=== PATIENT | male | born 1965 | race Caucasian/White ===

== ENCOUNTER 2016-10-12 12:43 | Emergency (ER) | payer MEDICAID ==
[2016-10-12] MEDS ORDERED: TRIAMCINOLONE 40 MG/ML VIAL ONE (14:40)
[2016-10-12] MEDS ORDERED: LIDOCAINE 1% 2 ML VIAL ONE (14:40)
--- NOTE | 2016-10-12 15:02 | ED Physician Documentation ---
PD HPI UPPER EXT INJURY - Stated complaint Stated Complaint: L ELBOW SWELLING - Chief complaint Chief Complaint: Ext Problem - History obtained from History obtained from: Patient - History of Present Illness Location: Left, Elbow Type of injury: Blunt / blow Where injury occurred: Home Timing - onset: How many weeks ago (3) Timing - duration: Weeks (3) Improved by: Rest, Immobilization Worsened by: Moving, Palpating Associated symptoms: Swelling. No: Weakness, Numbness Contributing factors: No: Anticoagulated Similar symptoms before: Has not had sx before Recently seen: Not recently seen - Additonal information Additional information: 51-year-old male banged his elbow very hard about 3 and half weeks ago he had some swelling that developed several days later and he has drained this area with a sharp razor blade and the fluid has reaccumulated and he attempted to re- drain this last night. This morning he continues to have fluid in the area and is come in for evaluation. He has some sensation of a flopping mass on his elbow but he does not have pain associated with this and he has not developed a fever or erythema. He states that when he banged his elbow he did not have any piercing of the skin. Review of Systems Constitutional: denies: Fever Eyes: denies: Decreased vision Ears: denies: Ear pain Nose: denies: Congestion Respiratory: denies: Cough GI: denies: Vomiting Musculoskeletal: reports: Extremity pain, Joint swelling. denies: Neck pain, Back pain, Joint pain Neurologic: denies: Generalized weakness, Focal weakness, Numbness PD PAST MEDICAL HISTORY - Past Medical History Past Medical History: Yes Cardiovascular: Hypertension Respiratory: Other Endocrine/Autoimmune: None GI: None : None HEENT: Other Psych:  Musculoskeletal: Osteoarthritis, Other Derm: None - Past Surgical History Past Surgical History: Yes Ortho: Carpal Tunnel surgery, Other - Present Medications Home Medications: Ambulatory Orders Medication Instructions Recorded Confirmed No Known Home Medications [No 10/12/16 10/12/16 Known Home Medications] - Allergies Allergies/Adverse Reactions: Allergies Allergy/AdvReac Type Severity Reaction Status Date / Time No Known Drug Allergies Allergy Verified 10/12/16 12:49 - Social History Does the pt smoke?: Yes Smoking Status: Current every day smoker Does the pt drink ETOH?: Yes Does the pt have substance abuse?: No - Immunizations Immunizations are current?: No Immunizations: TDAP >10years/unknown - POLST Patient has POLST: No PD ED PE NORMAL - Vitals Vital signs reviewed: Yes (hypertensive ) - General General: Alert and oriented X 3, No acute distress, Well developed/nourished - HEENT HEENT: Atraumatic, PERRL - Respiratory Respiratory: No respiratory distress - Derm Derm: Normal color, Warm and dry, No rash - Extremities Extremities: No deformity, Other (There is a fluctuant mass to the left elbow that is non-tender and without overlying erythema. There are 2 healing laceration easley to the skin without signs of inflammation. The distal n/v is intact, and the ROM is not restricted. ) - Neuro Neuro: Alert and oriented X 3, No motor deficit, No sensory deficit, Normal speech - Psych Psych: Normal mood, Normal affect Results - Vitals Vitals: Vital Signs - 24 hr 10/12/16 10/12/16 12:47 15:17 Temperature 36.5 C 36.2 C L Heart Rate 90 68 Respiratory 18 18 Rate Blood Pressure 195/107 H 168/105 H O2 Saturation 99 98 Oxygen O2 Source Room air - Labs Labs: Microbiology 10/12/16 15:00 Body Fluid Culture - Preliminary Synovial Fluid Procedures - Arthrocentesis Joint: Elbow Preparation: Sterile prep and drape Anesthesia: Lidocaine 1% Fluid: Bloody, Clear, Sent for culture, Fluid obtained - cc (25) Aftercare: Dressing applied, No complications, Other (instilled kenalog 40mg) PD MEDICAL DECISION MAKING - ED course Complexity details: re-evaluated patient, considered differential, d/w patient ED course: 51-year-old male with an olecranon bursitis that is swollen up again after he drained this at home. He is not having signs or symptoms of infection. The olecranon bursa is drained and 40 mg of Kenalog is instilled. Departure - Departure Disposition: 01 Home, Self Care Clinical Impression: Olecranon bursitis of left elbow Condition: Stable Instructions: ED Bursitis Elbow Olecranon Follow-Up: [facility] [Provider Group] Comments: Today in the Emergency Department your blood pressure was elevated. This can happen from the stress of the visit itself, from a current illness or circumstance or from uncontrolled hypertension. If you take blood pressure medications take your usual mediations, have your blood pressure re-checked in an appropriate setting and follow up any elevation with your primary care doctor. Discharge Date/Time: 10/12/16 15:18
[2016-10-12 15:18] VITALS: BP 168/105
== END 2016-10-12 15:18 | disposition home or self-care (01) ==
LOC: ED 12:43
DX: M70.22 Olecranon bursitis, left elbow (principal); W22.8XXA Striking against or struck by other objects, initial encounter; Y92.018 Other place in single-family (private) house as the place of occurrence of the external cause; I10 Essential (primary) hypertension; M19.90 Unspecified osteoarthritis, unspecified site; F17.200 Nicotine dependence, unspecified, uncomplicated
CPT/HCPCS: 12001; 20605; 87070; 87205; 99283

== ENCOUNTER 2016-12-18 11:05 | Outpatient (CLI) | payer MEDICAID ==
[2016-12-18 19:03] LABS: BASOPHILS # (AUTO) 0.1 10^3/uL (0.0-0.1); BASOPHILS % (AUTO) 1.5 %; EOSINOPHILS # (AUTO) 0.2 10^3/uL (0.0-0.7); EOSINOPHILS % (AUTO) 3.8 %; HCT - HEMATOCRIT 45.5 % (42.0-52.0); HGB - HEMOGLOBIN 14.8 g/dL (14.0-18.0); LYMPHOCYTES # (AUTO) 2.8 10^3/uL (1.5-3.5); LYMPHOCYTES % (AUTO) 46.7 %; MEAN CORPUSCULAR HEMOGLOBIN 31.9 pg (27.0-31.0); MEAN CORPUSCULAR HGB CONC 32.6 g/dL (32.0-36.0); MEAN CORPUSCULAR VOLUME 98.1 fL (80.0-94.0); MONOCYTES # (AUTO) 0.5 10^3/uL (0.0-1.0); MONOCYTES % (AUTO) 8.7 %; NEUTROPHILS # (AUTO) 2.4 10^3/uL (1.5-6.6); NEUTROPHILS % (AUTO) 39.3 %; NUCLEATED RED BLOOD CELLS AUTO 0.1 /100WBC; RED BLOOD COUNT 4.64 10^6/uL (4.70-6.10); RED CELL DISTRIBUTION WIDTH 14.5 % (12.0-15.0); UNCORRECTED WHITE BLOOD COUNT 6.1 x10^3/uL; WHITE BLOOD COUNT 6.1 x10^3/uL (4.8-10.8)
[2016-12-18 19:39] LABS: ALBUMIN/GLOBULIN RATIO 1.5 (1.0-2.2); BUN - BLOOD UREA NITROGEN 10 mg/dL (6-20); CALCIUM 10.8 mg/dL (8.5-10.3); CARBON DIOXIDE - CO2 25 mmol/L (21-32); CHLORIDE 103 mmol/L (101-111); CHOL/HDL RATIO 3.3 (<5.0); CHOLESTEROL 171 mg/dL; CREATININE 0.7 mg/dL (0.6-1.2); GFR - MDRD 118 (>89); GLUCOSE 128 mg/dL (70-100); HDL CHOLESTEROL 52 mg/dL; LDL/HDL RATIO 1.6 (<3.6); POTASSIUM 3.8 mmol/L (3.5-5.0); SODIUM 136 mmol/L (135-145); TOTAL PROTEIN 7.8 g/dL (6.7-8.2); TRIGLYCERIDES 182 mg/dL; VLDL CHOLESTEROL 36 mg/dL
== END 2016-12-18 11:06 | disposition home or self-care (01) ==
LOC: LAB.N 11:05
PROVIDERS: ATTEND Family Medicine
DX: F17.210 Nicotine dependence, cigarettes, uncomplicated (principal); I10 Essential (primary) hypertension
CPT/HCPCS: 36415; 80053; 80061; 85025

== ENCOUNTER 2017-09-13 11:13 | Outpatient (CLI) | payer OTHER ==
--- NOTE | 2017-09-13 16:40 | XRAY Report ---
Procedure Date: 09/13/2017 Accession Number: [id number] / [id number] Procedure: XR - Knee 3 View RT CPT Code: FULL RESULT: EXAM: Knee 3 View RT DATE: 09/13/2017 11:40 AM CLINICAL HISTORY: KNEE PAIN/LUMBAR PAIN COMPARISON: 09/19/2012 TECHNIQUE: 3 views. FINDINGS: Progressive medial knee joint space narrowing, sclerosis and spurring. Minimal patellar articular surface spurring. Small suprapatellar effusion no fracture or malalignment IMPRESSION: Progressive degenerative change right knee since 2012 particularly affecting the medial knee joint RADIA
--- NOTE | 2017-09-13 16:43 | XRAY Report ---
Procedure Date: 09/13/2017 Accession Number: [id number] / [id number] Procedure: XR - Lumbar Spine 2 View CPT Code: FULL RESULT: EXAM: Lumbar Spine 2 View DATE: 09/13/2017 11:40 AM CLINICAL HISTORY: KNEE PAIN/LUMBAR PAIN COMPARISON: MRI lumbar spine 06/07/2009 TECHNIQUE: 2 views. FINDINGS: Alignment: No scoliosis. Minimal retrolisthesis of L5 with respect to S1. Bones: No vertebral body fractures or bone lesions. Status post ORIF right hip Disks: L5-S1 degenerative disc space narrowing, vacuum phenomenon, and spurring. Mild L4-5 disc space narrowing. Remaining disc spaces well maintained. Facets: Degenerative changes most marked L4-5 and L5-S1. Sacroiliac Joints: Mild degenerative changes. Soft Tissues: Unremarkable. IMPRESSION: Degenerative change lumbar spine most marked L5-S1. Probable mild progression since the 06/07/2009 MRI. RADIA
== END 2017-09-13 11:14 | disposition home or self-care (01) ==
LOC: DI 11:13
DX: M51.37 Other intervertebral disc degeneration, lumbosacral region (principal); M51.36 Other intervertebral disc degeneration, lumbar region; M47.897 Other spondylosis, lumbosacral region; M47.896 Other spondylosis, lumbar region
CPT/HCPCS: 72100

== ENCOUNTER 2018-04-18 12:21 | Emergency (ER) | payer MEDICAID, OTHER ==
--- NOTE | 2018-04-18 13:13 | ED Physician Documentation ---
PD HPI ABD PAIN - Stated complaint Stated Complaint: ABD PX - Chief complaint Chief Complaint: Abd Pain - History obtained from History obtained from: Patient - History of Present Illness Timing - onset: How many weeks ago (1) Timing - duration: Weeks (1) Timing - details: Gradual onset, Still present, Waxing and waning Quality: Cramping, Aching Location: RUQ, Epigastric Review of Systems Constitutional: denies: Fever, Chills Nose: reports: Rhinorrhea / runny nose (1-2 weeks ago, improved), Congestion Cardiac: denies: Chest pain / pressure, Pedal edema Respiratory: reports: Cough GI: denies: Nausea, Vomiting, Constipation (but firm stool. Abd feels better with BMs. He also has a lot of belching and feels better with burping.), Diarrhea : denies: Dysuria, Frequency Skin: denies: Rash, Lesions Neurologic: denies: Generalized weakness, Near syncope PD PAST MEDICAL HISTORY - Past Medical History Cardiovascular: Hypertension Respiratory: Other Endocrine/Autoimmune: None GI: None : None HEENT: Other Psych:  Musculoskeletal: Osteoarthritis, Other Derm: None - Past Surgical History Past Surgical History: Yes Ortho: Carpal Tunnel surgery, Other - Present Medications Home Medications: Ambulatory Orders Medication Instructions Recorded Confirmed Docusate Sodium 100 mg PO DAILY #20 capsule 04/18/18 Naproxen 375 mg PO BID #20 tablet 04/18/18 Spironolactone 25 mg PO DAILY #10 tablet 04/18/18 - Allergies Allergies/Adverse Reactions: Allergies Allergy/AdvReac Type Severity Reaction Status Date / Time No Known Drug Allergies Allergy Verified 04/18/18 12:40 - Living Situation Living Arrangement: reports: At home - Social History Does the pt smoke?: Yes Smoking Status: Current every day smoker Does the pt drink ETOH?: Yes Does the pt have substance abuse?: No - Immunizations Immunizations are current?: No Immunizations: TDAP >10years/unknown - POLST Patient has POLST: No PD ED PE NORMAL - Vitals Vital signs reviewed: Yes - General General: Alert and oriented X 3, Well developed/nourished - HEENT HEENT: Ears normal, Pharynx benign - Neck Neck: Supple, no meningeal sign, No adenopathy, No JVD - Cardiac Cardiac: RRR, No murmur - Respiratory Respiratory: Clear bilaterally, Other (no crackles heard) - Abdomen Abdomen: Soft, No organomegaly, Other (moderately distended. Not tense. Mild diffuse tenderness/pressure with palpation. No focal tenderness and not tender over [place] area. ). No: Normal bowel sounds (increased diffusely) - Male Male : Deferred - Rectal Rectal: Deferred - Back Back: No CVA TTP - Derm Derm: Normal color, Warm and dry - Extremities Extremities: No tenderness to palpate, Normal ROM s pain, No edema, No calf tenderness / cord - Neuro Neuro: Alert and oriented X 3, No motor deficit, Normal speech Results - Vitals Vitals: Vital Signs - 24 hr 04/18/18 04/18/18 04/18/18 12:38 14:48 16:55 Temperature 35.8 C L 36.5 C 37.1 C Heart Rate 56 L 59 L 107 H Respiratory 14 20 20 Rate Blood Pressure 128/102 H 126/100 H 120/98 H O2 Saturation 96 96 96 Oxygen O2 Source Room air - Labs Labs: Laboratory Tests 04/18/18 04/18/18 04/18/18 13:28 13:28 14:55 WBC 7.6 RBC 4.33 L Hgb 14.7 Hct 43.0 MCV 99.5 H MCH 34.0 H MCHC 34.1 RDW 13.8 Plt Count 267 MPV 8.5 Neut # (Auto) 4.8 Lymph # (Auto) 2.0 [place] # (Auto) 0.7 Eos # (Auto) 0.0 Baso # (Auto) 0.1 Absolute Nucleated RBC 0.01 Nucleated RBC % 0.1 Sodium 140 Potassium 3.8 Chloride 104 Carbon Dioxide 24 Anion Gap 12.0 BUN 13 Creatinine 0.9 Estimated GFR (MDRD) 88 L Glucose 103 H Calcium 10.2 Total Bilirubin 1.8 H AST 44 H ALT 39 Alkaline Phosphatase 143 H Total Protein 7.5 Albumin 4.0 Globulin 3.5 Albumin/Globulin Ratio 1.1 Lipase 29 Urine Color ORANGE Urine Clarity CLEAR Urine pH 7.0 Ur Specific [place] 1.010 Urine Protein Urine Glucose (UA) NEGATIVE Urine Ketones NEGATIVE Urine Occult Blood NEGATIVE Urine Nitrite NEGATIVE Urine Bilirubin NEGATIVE Urine Urobilinogen Ur Leukocyte Esterase NEGATIVE Urine RBC 0-5 Urine WBC 0-3 Ur Squamous Epith Cells NONE SEEN Urine Bacteria None Seen Ur Microscopic Review INDICATED Urine Culture Comments NOT INDICATED PD MEDICAL DECISION MAKING - ED course Complexity details: considered differential (He does not seem to be in CHF/failure. Liver does not look bad on CT and his LFTs are minimally elevated, so cirrhotic ascites seems strange. He had URI/viral illness 1-2 weeks ago, so consider some viral related process? He does not have fever nor leukocytosis, nor significant abd pain/tender, just fullness/cramps, so doubt SBP and not much ascites there for trying to tap anyway. Does have fairly regular alcohol use. Can start diuretic and stool softener. to f/u PCP and will likely need GI referral. ), d/w wireless consultant (Baldo Wright, risk control manager for surgery, and reviewed findings. He did not think the ascites nor effusion would originate from the gallstones, even if some mild cholecystitis. More likely the GB wall thickening is from edema/ascites. Thinks GI/medicine eval more appropriate. ) Departure - Departure Disposition: 01 Home, Self Care Clinical Impression: Abdominal bloating with cramps, Gallstones Ascites Qualifiers: Ascites type: other type Qualified Code(s): R18.8 - Other ascites Condition: Stable Record reviewed to determine appropriate education?: Yes Instructions: ED Abdominal Pain Unkn Cause, ED Ascites Prescriptions: Docusate Sodium 100 mg PO DAILY #20 capsule Naproxen 375 mg PO BID #20 tablet Spironolactone 25 mg PO DAILY #10 tablet Comments: You do have a little bit of fluid in the abdominal cavity called ascites. There is no direct obvious reason for it at this time. He could potentially be post viral irritation of the intestine that goes along with your gas and burping. You do have some gallstones but that looks to be incidental. You can get liver dysfunction from regular alcohol use and that could be causing the buildup of fluid in the abdomen as well. Your liver function looks pretty normal though. Decrease alcohol use. We will have you use a stool softener along with some anti-inflammatories and a mild diuretic over the next week. Call your primary care for follow-up appointment for next week and see how much better you are improved. Return if worsening or you have vomiting or fever or specifically right upper abdominal pain. Discharge Date/Time: 04/18/18 17:01
[2018-04-18 13:37] LABS: BASOPHILS # (AUTO) 0.1 10^3/uL (0.0-0.1); BASOPHILS % (AUTO) 0.9 %; EOSINOPHILS % (AUTO) 0.4 %; HGB - HEMOGLOBIN 14.7 g/dL (14.0-18.0); LYMPHOCYTES % (AUTO) 26.3 %; MEAN CORPUSCULAR HGB CONC 34.1 g/dL (32.0-36.0); MEAN CORPUSCULAR VOLUME 99.5 fL (80.0-94.0); MEAN PLATELET VOLUME 8.5 fL (7.4-11.4); MONOCYTES # (AUTO) 0.7 10^3/uL (0.0-1.0); MONOCYTES % (AUTO) 9.6 %; NEUTROPHILS # (AUTO) 4.8 10^3/uL (1.5-6.6); NEUTROPHILS % (AUTO) 62.8 %; PLT - PLATELET COUNT 267 10^3/uL (130-450); RED BLOOD COUNT 4.33 10^6/uL (4.70-6.10); RED CELL DISTRIBUTION WIDTH 13.8 % (12.0-15.0); WHITE BLOOD COUNT 7.6 x10^3/uL (4.8-10.8)
[2018-04-18] MEDS ORDERED: SODIUM CHLORIDE 0.9% 1,000 ML IV ONE (13:47)
[2018-04-18] MEDS ORDERED: IOVERSOL 320 100 ML VIAL IVP ONE ×2 (14:10→14:34)
[2018-04-18 14:35] LABS: ALBUMIN/GLOBULIN RATIO 1.1 (1.0-2.2); BILIRUBIN,TOTAL 1.8 mg/dL (0.2-1.0); CALCIUM 10.2 mg/dL (8.5-10.3); CREATININE 0.9 mg/dL (0.6-1.2); TOTAL PROTEIN 7.5 g/dL (6.7-8.2)
--- NOTE | 2018-04-18 15:02 | CT Report ---
Reason: abd pain diffusely and bloating Procedure Date: 04/18/2018 Accession Number: [id number] / [id number] Procedure: CT - Abdomen/Pelvis W/ CPT Code: FULL RESULT: EXAM: CT ABDOMEN AND PELVIS EXAM DATE: 04/18/2018 02:33 PM. CLINICAL HISTORY: Abdominal pain diffusely and bloating. COMPARISONS: None. TECHNIQUE: Routine helical CT imaging was performed through the abdomen and pelvis. IV contrast: Optiray 320, 90 mL. Enteric contrast: No. Reconstructions: Coronal and sagittal. In accordance with CT protocol optimization, one or more of the following dose reduction techniques were utilized for this exam: automated exposure control, adjustment of mA and/or KV based on patient size, or use of iterative reconstructive technique. FINDINGS: Lung Bases: Small to moderate right pleural effusion with associated consolidation. Liver: Low density, likely steatosis. Gallbladder/Bile Ducts: Cholelithiasis. The gallbladder wall is thickened to 6 mm and appears hypodense/edematous with slight surrounding stranding, some of which is remaining in the abdominal mesentery. Spleen: Normal. Pancreas: Normal. Adrenal Glands: Normal. Kidneys: Normal. No masses or hydronephrosis. Peritoneal Cavity/Bowel: Predominantly perihepatic and right pericolic gutter ascites. No free air or adenopathy. No masses or acute inflammatory process. Pelvic Organs: Pelvic ascites and sigmoid diverticulosis without definite diverticulitis. The bladder and visualized pelvic organs are within normal limits. Vasculature: No aneurysms or other significant abnormality. Bones: No significant abnormality. Other: None. IMPRESSION: Right pleural effusion with ascites in the setting of low density liver, correlate to hepatitis. Cholelithiasis. Due to the ascites, cholecystitis cannot be excluded by CT. CRITICAL RESULT: The findings were discussed with Dr. Oviedo on 04/18/2018 at 3 PM. RADIA
[2018-04-18 15:09] LABS: GLUCOSE, URINE (UA) NEGATIVE (NEGATIVE); KETONES,URINE (UA) NEGATIVE (NEGATIVE); LEUKOCYTE ESTERASE, URINE NEGATIVE (NEGATIVE); NITRITE,URINE NEGATIVE (NEGATIVE); OCCULT BLOOD,URINE NEGATIVE (NEGATIVE)
[2018-04-18 15:16] LABS: BILIRUBIN,URINE NEGATIVE (NEGATIVE); CLARITY,URINE CLEAR (CLEAR); ICTOTEST,URINE NEGATIVE
[2018-04-18 15:17] LABS: BACTERIA,URINE None Seen /HPF (None Seen); RBC,URINE 0-5 /HPF (0-5); SQUAMOUS EPITHELIAL CELL,UR NONE SEEN (<= Few)
[2018-04-18] MEDS ORDERED: KETOROLAC 30 MG/ML VIAL IVP STA (15:49)
[2018-04-18] MEDS ORDERED: DOCUSATE SODIUM 100 MG CAPSULE PO STA (15:51)
[2018-04-18 16:55] VITALS: BP 120/98
== END 2018-04-18 17:01 | disposition home or self-care (01) ==
LOC: ED 12:21
DX: R14.0 Abdominal distension (gaseous) (principal); K80.80 Other cholelithiasis without obstruction; R18.8 Other ascites; I10 Essential (primary) hypertension; F17.200 Nicotine dependence, unspecified, uncomplicated
CPT/HCPCS: 36415; 74177; 80053; 81001; 83690; 85025; 96361; 96374; 99283; A9270; Q9967; 81003; 87086

== ENCOUNTER 2018-04-29 09:09 | Inpatient (IN) | payer MEDICAID ==
[2018-04-29 09:52] LABS: BASOPHILS # (AUTO) 0.1 10^3/uL (0.0-0.1); BASOPHILS % (AUTO) 1.1 %; EOSINOPHILS # (AUTO) 0.1 10^3/uL (0.0-0.7); EOSINOPHILS % (AUTO) 1.4 %; HGB - HEMOGLOBIN 14.6 g/dL (14.0-18.0); LYMPHOCYTES # (AUTO) 2.2 10^3/uL (1.5-3.5); LYMPHOCYTES % (AUTO) 34.7 %; MEAN CORPUSCULAR HEMOGLOBIN 33.6 pg (27.0-31.0); MEAN CORPUSCULAR HGB CONC 33.9 g/dL (32.0-36.0); MEAN CORPUSCULAR VOLUME 99.2 fL (80.0-94.0); MEAN PLATELET VOLUME 8.9 fL (7.4-11.4); MONOCYTES # (AUTO) 0.6 10^3/uL (0.0-1.0); MONOCYTES % (AUTO) 9.5 %; NEUTROPHILS # (AUTO) 3.3 10^3/uL (1.5-6.6); NEUTROPHILS % (AUTO) 53.3 %; PLT - PLATELET COUNT 264 10^3/uL (130-450); RED BLOOD COUNT 4.36 10^6/uL (4.70-6.10); RED CELL DISTRIBUTION WIDTH 14.5 % (12.0-15.0); WHITE BLOOD COUNT 6.3 x10^3/uL (4.8-10.8)
[2018-04-29 10:02] LABS: ALBUMIN/GLOBULIN RATIO 1.2 (1.0-2.2); BILIRUBIN,TOTAL 1.8 mg/dL (0.2-1.0); CALCIUM 9.8 mg/dL (8.5-10.3); CREATININE 0.9 mg/dL (0.6-1.2); TOTAL PROTEIN 7.4 g/dL (6.7-8.2)
[2018-04-29 10:06] LABS: RBC MORPHOLOGY (MULTIPLE) 1+ ANISOCYTOSIS (NORMAL)
[2018-04-29] MEDS ORDERED: FUROSEMIDE 40 MG/4 ML VIAL IVP STA (10:30)
--- NOTE | 2018-04-29 10:33 | ED Physician Documentation ---
History of Present Illness - Stated complaint Stated Complaint: ABD PX - Chief complaint Chief Complaint: Abd Pain - History obtained from History obtained from: Patient - History of Present Illness Timing: How many weeks ago (2) - Additonal information Additional information: Previously well 53-year-old male was seen in the emergency department 10 days ago with abdominal pain and abdominal swelling he was noted to have some ascites and was placed on some diuretic. Since that time he has had persistence of abdominal distention some constipation and a feeling of fullness and shortness of breath. He states that he is not able to lay flat without being short of breath and it if he exerts himself at all he becomes acutely short of breath. He does state that he is previously had hypertension he was treated for some time and discontinued treatment about 1 year ago when his blood pressure was normal after he ran out of his medication. Review of Systems Constitutional: denies: Fever Eyes: denies: Decreased vision Ears: denies: Ear pain Nose: denies: Rhinorrhea / runny nose, Congestion Throat: denies: Sore throat Cardiac: denies: Chest pain / pressure, Palpitations Respiratory: reports: Dyspnea. denies: Cough, Wheezing GI: reports: Abdominal Pain, Abdominal Swelling, Constipation : denies: Dysuria, Frequency Skin: denies: Rash Musculoskeletal: reports: Extremity swelling. denies: Neck pain, Back pain, Extremity pain Neurologic: denies: Generalized weakness, Focal weakness, Numbness PD PAST MEDICAL HISTORY - Past Medical History Past Medical History: Yes Cardiovascular: Hypertension Respiratory: Other Endocrine/Autoimmune: None GI: None : None HEENT: Other Psych:  Musculoskeletal: Osteoarthritis, Other Derm: None - Past Surgical History Past Surgical History: Yes Ortho: Carpal Tunnel surgery, Other - Present Medications Home Medications: Ambulatory Orders Medication Instructions Recorded Confirmed RX: Docusate Sodium 100 mg PO DAILY #20 capsule 04/18/18 04/29/18 RX: Naproxen 375 mg PO BID #20 tablet 04/18/18 04/29/18 RX: Spironolactone 25 mg PO DAILY #10 tablet 04/18/18 04/29/18 - Allergies Allergies/Adverse Reactions: Allergies Allergy/AdvReac Type Severity Reaction Status Date / Time No Known Drug Allergies Allergy Verified 04/29/18 13:21 - Social History Does the pt smoke?: Yes Smoking Status: Current every day smoker Does the pt drink ETOH?: Yes Does the pt have substance abuse?: No - Immunizations Immunizations are current?: No Immunizations: TDAP >10years/unknown - POLST Patient has POLST: No PD ED PE NORMAL - Vitals Vital signs reviewed: Yes (hypertensive ) - General General: Alert and oriented X 3, No acute distress, Well developed/nourished - HEENT HEENT: Atraumatic, PERRL, EOMI - Neck Neck: Supple, no meningeal sign, No bony TTP - Cardiac Cardiac: Other (tachy and irregular ) - Respiratory Respiratory: No respiratory distress, Clear bilaterally - Abdomen Abdomen: Soft, Other (mild distention symetric without specific tenderness or fluid wave. Specifically there is no RUQ tenderness. ) - Back Back: No CVA TTP, No spinal TTP - Derm Derm: Normal color, Warm and dry, No rash - Extremities Extremities: No deformity, Other (There is trace edema bilaterally ) - Neuro Neuro: Alert and oriented X 3, personnel training officer 2-12 intact, No motor deficit, No sensory deficit, Normal speech Eye Opening: Spontaneous Motor: Obeys Commands Verbal: Oriented GCS Score: 15 Results - Vitals Vitals: Vital Signs - 24 hr 04/29/18 04/29/18 04/29/18 09:19 09:35 11:41 Temperature 36.2 C L 36.2 C L Heart Rate 86 86 123 H Respiratory 18 16 16 Rate Blood Pressure 128/100 H 128/100 H 117/98 H O2 Saturation 98 98 98 04/29/18 04/29/18 13:18 15:40 Temperature 36.5 C Heart Rate 85 86 Respiratory 16 16 Rate Blood Pressure 118/83 H 100/75 O2 Saturation 97 95 Oxygen O2 Source Room air - EKG (time done) 1122 Rate: Rate (enter#) (121) Rhythm: Atrial fibrillation Ischemia: T wave inversion (lateral ) Compare to prior EKG: Old EKG unavailable Computer interpretation: Agree with computer - Labs Labs: Laboratory Tests 04/29/18 04/29/18 04/29/18 09:33 09:33 09:55 WBC 6.3 RBC 4.36 L Hgb 14.6 Hct 43.2 MCV 99.2 H MCH 33.6 H MCHC 33.9 RDW 14.5 Plt Count 264 MPV 8.9 Neut # (Auto) 3.3 Lymph # (Auto) 2.2 [place] # (Auto) 0.6 Eos # (Auto) 0.1 Baso # (Auto) 0.1 Absolute Nucleated RBC 0.00 Nucleated RBC % 0.1 Manual Slide Review Indicated RBC Morph Micro Appear 1+ ANISOCYTOSIS Sodium 137 Potassium 3.9 Chloride 105 Carbon Dioxide 24 Anion Gap 8.0 BUN 20 Creatinine 0.9 Estimated GFR (MDRD) 88 L Glucose 120 H Calcium 9.8 Total Bilirubin 1.8 H AST 36 ALT 34 Alkaline Phosphatase 127 H Troponin I 0.09 B-Natriuretic Peptide Total Protein 7.4 Albumin 4.0 Globulin 3.4 Albumin/Globulin Ratio 1.2 Lipase 31 Urine Color Urine Clarity Urine pH Ur Specific [place] Urine Protein Urine Glucose (UA) Urine Ketones Urine Occult Blood Urine Nitrite Urine Bilirubin Urine Urobilinogen Ur Leukocyte Esterase Urine RBC Urine WBC Ur Squamous Epith Cells Urine Bacteria Ur Microscopic Review Urine Culture Comments 04/29/18 04/29/18 09:55 12:30 WBC RBC Hgb Hct MCV MCH MCHC RDW Plt Count MPV Neut # (Auto) Lymph # (Auto) [place] # (Auto) Eos # (Auto) Baso # (Auto) Absolute Nucleated RBC Nucleated RBC % Manual Slide Review RBC Morph Micro Appear Sodium Potassium Chloride Carbon Dioxide Anion Gap BUN Creatinine Estimated GFR (MDRD) Glucose Calcium Total Bilirubin AST ALT Alkaline Phosphatase Troponin I B-Natriuretic Peptide 1664 H Total Protein Albumin Globulin Albumin/Globulin Ratio Lipase Urine Color YELLOW Urine Clarity CLEAR Urine pH 6.5 Ur Specific [place] 1.010 Urine Protein NEGATIVE Urine Glucose (UA) NEGATIVE Urine Ketones NEGATIVE Urine Occult Blood NEGATIVE Urine Nitrite NEGATIVE Urine Bilirubin NEGATIVE Urine Urobilinogen 0.2 (NORMAL) Ur Leukocyte Esterase TRACE H Urine RBC 0-5 Urine WBC 0-3 Ur Squamous Epith Cells NONE SEEN Urine Bacteria Rare Ur Microscopic Review INDICATED Urine Culture Comments INDICATED - Rads (name of study) chest Radiology: Prelim report reviewed (Impression: Right pleural effusion associated basilar airspace disease similar to 04/18/2018 no other significant findings. Chronic bony changes are present.), EMP read indepedently (The heart is markedly enlarged compared with 2015. ), See rad report Procedures - Bedside sono Bedside sono by EMP: With use of bedside ultrasound the heart is imaged and there is a trace pericardial effusion which does not appear to cause any form of tamponade. There is no significant ascites on bedside exam of the RUQ. There are tiny stones in the gallbladder the gallbladder is not distended, it is sonographically non- tender and there is wall thickening/edema to 0.6cm. - IVC sono (time) 1025 Bedside IVC sono: IVC measures (cm) (2.53), IVC collapsed c insp (cm) (2.48), High CVP, Fluid overload PD MEDICAL DECISION MAKING - ED course Complexity details: reviewed results, re-evaluated patient, considered differential, d/w patient ED course: 53-year-old male presents to the emergency department with generalized swelling and shortness of breath and he is in congestive heart failure with a large globular heart and trace pericardial effusion. Is found to be in atrial fibrillation with a rapid ventricular response and he is administered diltiazem 20 mg intravenously He has improvement in his rate with the dilt and has a brisk diuresis with some improvement in symptoms. Dr. Cortés is consulted in the case and graciously agrees to care for the patient in the hospital. Departure - Departure Disposition: [address] [facility] DC/Xfer Clinical Impression: Atrial fibrillation with RVR Congestive heart failure Qualifiers: Heart failure type: unspecified Heart failure chronicity: acute Qualified Code(s): I50.9 - Heart failure, unspecified
--- NOTE | 2018-04-29 11:03 | XRAY Report ---
Reason: dyspnea Procedure Date: 04/29/2018 Accession Number: [id number] / [id number] Procedure: XR - Chest 1 View X-Ray CPT Code: 57543 FULL RESULT: EXAM: CHEST RADIOGRAPHY EXAM DATE: 04/29/2018 10:42 AM. CLINICAL HISTORY: Dyspnea. COMPARISON: 04/18/2018 CT scan abdomen and pelvis TECHNIQUE: 1 view. FINDINGS: Lungs/Pleura: Persistent right basilar pleural effusion and basilar airspace disease. No other focal opacities evident. No left pleural effusion. No pneumothorax. Mediastinum: Heart appears enlarged in size some of which is due to the AP portable technique. Other: Status post ORIF right clavicle. Healed right rib fractures. IMPRESSION: Right pleural effusion and associated basilar airspace disease similar to 04/18/2018. No other significant findings. Chronic bony changes are present.
[2018-04-29] MEDS ORDERED: diltiaZEM INJ 5 MG/ML VIAL IVP STA (11:28)
[2018-04-29 12:41] LABS: BILIRUBIN,URINE NEGATIVE (NEGATIVE); GLUCOSE, URINE (UA) NEGATIVE (NEGATIVE); KETONES,URINE (UA) NEGATIVE (NEGATIVE); LEUKOCYTE ESTERASE, URINE TRACE (NEGATIVE); NITRITE,URINE NEGATIVE (NEGATIVE); OCCULT BLOOD,URINE NEGATIVE (NEGATIVE); PH,URINE 6.5 PH (5.0-7.5); PROTEIN,URINE NEGATIVE (NEGATIVE); UROBILINOGEN,URINE 0.2 (NORMAL) E.U./dL (NORMAL)
[2018-04-29 12:42] LABS: CLARITY,URINE CLEAR (CLEAR)
[2018-04-29 12:54] LABS: RBC,URINE 0-5 /HPF (0-5)
[2018-04-29 12:55] LABS: BACTERIA,URINE Rare /HPF (None Seen); SQUAMOUS EPITHELIAL CELL,UR NONE SEEN (<= Few)
--- NOTE | 2018-04-29 13:24 | Ultrasound Report ---
Reason: ruq pain soa Procedure Date: 04/29/2018 Accession Number: [id number] / [id number] Procedure: US - Abdomen Limited CPT Code: FULL RESULT: EXAM: ABDOMEN ULTRASOUND LIMITED, RUQ EXAM DATE: 04/29/2018 12:57 PM. CLINICAL HISTORY: Right upper quadrant pain. Shortness of air. COMPARISON: ABDOMEN/PELVIS W/ 04/18/2018 2:26 PM. TECHNIQUE: Real-time scanning was performed with static images obtained. FINDINGS: Liver: Diffusely echogenic hepatic parenchyma. No hepatic lesions. No intrahepatic ductal dilatation. Hepatic veins and IVC are prominent. The liver is upper normal in size, 17 cm. Main portal vein flow: Hepatopetal. Gallbladder: Multiple gallstones are seen in the gallbladder. Per aws solution architect, the patient is not tender over the gallbladder. There is thickening of the gallbladder wall. Biliary System: CBD measures 9-10 mm. No filling defects are identified. Other: Right kidney measures 12.8 cm. The right kidney is lobular in contour. Mild right renal pelviectasis. There may be slight calyceal prominence. No renal masses. Portions of the visualized pancreas are unremarkable. The entire pancreas is not visualized. There is free fluid in the abdomen large on the right. There is a right pleural effusion. IMPRESSION: 1. Diffusely echogenic hepatic parenchyma, findings typically seen with fatty replacement. Hepatic vein and IVC enlargement. No hepatic lesions. 2. Cholelithiasis. Gallbladder wall thickening. Findings can be seen with developing cholecystitis although is nonspecific noting that the patient is nontender per aws solution architect over the gallbladder. 3. Common bile duct enlargement measuring up to 10 mm. No filling defects. 4. Mild right renal hydronephrosis. 5. Ascites. 6. Right pleural effusion. RADIA
[2018-04-29] MEDS ORDERED: PROCHLORPERAZINE 10 MG/2 ML VIAL IVP PRN (16:05)
[2018-04-29] MEDS ORDERED: TEMAZEPAM 15 MG CAPSULE PO PRN (16:05)
[2018-04-29] MEDS ORDERED: IPRATROPIUM/ALBUTEROL 3 ML NEB INH PRN (17:27)
[2018-04-29] MEDS: FUROSEMIDE 20 MG/2 ML VIAL IVP SCH (17:33)
[2018-04-29] MEDS: SODIUM CHLORIDE FLUSH 0.9% 10 ML SYRINGE IVP SCH (17:33)
[2018-04-29] MEDS: NICOTINE 14 MG PATCH TOP SCH (18:45)
[2018-04-29] MEDS ORDERED: ENOXAPARIN 40 MG/0.4 ML SYRINGE SUBQ SCH (21:00)
[2018-04-29] MEDS: FAMOTIDINE 20 MG TABLET PO SCH (21:44)
[2018-04-30] MEDS: SODIUM CHLORIDE FLUSH 0.9% 10 ML SYRINGE IVP SCH ×3 (02:15→16:30)
[2018-04-30] MEDS: FUROSEMIDE 20 MG/2 ML VIAL IVP SCH ×2 (06:08→13:50)
--- NOTE | 2018-04-30 08:35 | HISTORY & PHYSICAL EXAMINATION ---
DATE OF SERVICE: 04/29/2018 Physician: Li Cruz MD HISTORY OF PRESENT ILLNESS: This is a 53-year-old white male with a history of alcoholism (he drinks 8 beers a day) with otherwise a negative past medical history. He presented to this emergency room 10 days ago with abdominal pain and swelling, and was noted to have ascites on imaging, and advised to stop his alcohol intake, and was sent home with spironolactone. He states the abdominal pain decreased slightly and his swelling also decreased, but in the last two days, he has developed PND and orthopnea, and again worsening of the abdominal swelling. He was supposed to start seeing a PCP today but presented to the emergency room again. He is now found to be in heart failure with BNP over 1600, and is being admitted for management. Also, of note is that his rhythm today is atrial fibrillation, which he was not in ten days ago at that ER visit. PAST MEDICAL HISTORY: Heavy alcohol use, osteoarthritis. PAST SURGICAL HISTORY: Carpal tunnel surgery. ALLERGIES: NONE. MEDICATIONS 1. Colace 100 mg daily. 2. Naprosyn 375 mg b.i.d. p.r.n. 3. Spironolactone 25 mg daily. SOCIAL HISTORY: The patient drinks up to 8 beers a day for many years. He states he stopped drinking "cold turkey", 12 days ago, and does not describe going through withdrawal. The patient smokes one pack of cigarettes a day, which he decreased to half a pack a day for the last several days. There is no illicit drug use history. The patient works as a [employer]. FAMILY HISTORY: Cardiac history in his father, otherwise negative. REVIEW OF SYSTEMS: A comprehensive review of systems was performed. The pertinent positives are in HPI, the rest are negative. PHYSICAL EXAMINATION GENERAL: White male, who is in no distress, sitting upright in bed. He does complain of distress from abdominal swelling. VITAL SIGNS: Blood pressure 128/100, heart rate 80-120 in atrial fibrillation. Afebrile, room air saturation 98%. HEENT: Unremarkable. NECK: Without JVD in a vertical position. No carotid bruits. CHEST: Decreased breath sounds at both anterior bases. No rales, wheezes or rhonchi. CARDIOVASCULAR: Heart sounds are irregular, and no murmurs heard. There is no RV heave. ABDOMEN: Distended, tense, has hepatomegaly 6 fingerbreadths below the right costal margin. There is no fluid wave. There is no guarding or rebound. Normal bowel sounds. EXTREMITIES: 2+ edema to above the knees. No clubbing or cyanosis. NEUROLOGIC: Intact. He has no liver flap. LABORATORIES: Normal electrolytes. Normal BUN and creatinine, AST 36, ALT 34, bilirubin 1.8. Troponin 0.09. BNP 1664. No INR was done. White blood count 6.3, hemoglobin 14.6, platelet count 264. The MCV is high at 99. Urinalysis showed trace leukocyte esterase and rare bacteria. STUDIES 1. Chest x-ray: Right pleural effusion similar to ten days previously, and cardiomegaly. 2. Abdominal ultrasound: Mild ascites. 3. EKG: Atrial fibrillation, rate of 121, with poor R-wave progression and diffusely flat T waves. IMPRESSION/DIAGNOSES 1. Congestive heart failure, unspecified type. 2. New onset atrial fibrillation. 3. Ascites. 4. Alcohol abuse. 5. Tobacco use. 6. Abnormal EKG. PLAN 1. Admit the patient to a Med/Surg status, on telemetry. 2. Begin with an oral beta les for rate control, which will likely be needed to treat systolic heart failure. Systolic LV failure is suspected because of the very elevated BNP. The patient was inquisitive about his diagnoses and whether he will recover, and I had a long discussion about etiologies of heart failure, and he sounds very motivated to stop his excessive alcohol drinking and tobacco use in order to get better. 3. Cycle troponins x3 to rule out an acute MD as the cause of the atrial fibrillation and the heart failure. 4. Obtain an Echocardiogram to evaluate LV and RV contractility. 5. Start the patient on daily aspirin and depending on his LVEF and other findings during this workup, anticoagulation may also be needed for management with his new atrial fibrillation. 6. Begin IV diuretics, and continue his p.o. spironolactone. 7. Follow I's and O's strictly and daily weights. 8. Follow his electrolytes and magnesium during diuresis. 9. Give him a nicotine patch while he cannot smoke here. 10. Start a CIWA protocol in case of withdrawal from alcohol. Ativan if needed. Start daily Thiamine. DVT PROPHYLAXIS: SCDs. CODE STATUS: FULL CODE. ATTESTATION: The patient is expected to be discharged or transferred to another facility within 96 hours: Yes. TD: 04/30/2018 08:19 ANGELA
[2018-04-30] MEDS ORDERED: THIAMINE 100 MG TABLET PO SCH (09:00)
[2018-04-30] MEDS ORDERED: MULTIVITAMIN 10 ML, THIAMINE INJ 100 MG, FOLIC ACID INJ 1 MG in D5.45NS W/20 MEQ KCL 1,... IV SCH (09:00)
[2018-04-30] MEDS: ENOXAPARIN 40 MG/0.4 ML SYRINGE SUBQ SCH (10:18)
[2018-04-30] MEDS: NICOTINE 14 MG PATCH TOP SCH (10:18)
[2018-04-30] MEDS: DOCUSATE SODIUM 100 MG CAPSULE PO SCH (10:19)
[2018-04-30] MEDS: FAMOTIDINE 20 MG TABLET PO SCH ×2 (10:19→21:41)
[2018-04-30] MEDS: SPIRONOLACTONE 25 MG TABLET PO SCH (10:19)
[2018-04-30] MEDS: SENNA 8.6 MG TABLET PO SCH (10:19)
[2018-04-30] MEDS: METOPROLOL SUCCINATE 25 MG TABLET PO SCH (10:19)
[2018-04-30] MEDS: POLYETHYLENE GLYCOL 3350 17 GM PACKET PO SCH (10:20)
[2018-04-30] MEDS ORDERED: MAGNESIUM SULFATE 2 GRAM 2 GM/50 ML BAG IV SCH (10:27)
[2018-04-30] MEDS: ASPIRIN EC 81 MG TABLET PO SCH (10:33)
[2018-04-30] MEDS ORDERED: LORazepam 1 MG TABLET PO PRN (10:53)
[2018-04-30 11:02] LABS: ALBUMIN 3.5 g/dL (3.2-5.5); CALCIUM 9.6 mg/dL (8.5-10.3); CREATININE 0.9 mg/dL (0.6-1.2); MAGNESIUM 1.8 mg/dL (1.7-2.8); PHOSPHORUS 3.4 mg/dL (2.5-4.6)
[2018-04-30] MEDS: MULTIVITAMIN W/MINERALS TABLET PO SCH (11:13)
[2018-04-30] MEDS: LACTULOSE 10 GM /15 ML UDC PO SCH ×2 (11:13→21:40)
[2018-04-30] MEDS: FOLIC ACID 1 MG TABLET PO SCH (11:13)
--- NOTE | 2018-04-30 12:47 | PROVIDER PROGRESS NOTE ---
Subjective - Prog Note Date Prog Note Date: 04/30/18 Prog Note Time: 12:44 - Subjective Pt reports feeling: Improved (Patient states severe "cramping" to legs. Mild Abdominal discomfort. Small stools.) Current Medications - Current Medications Current Medications: Active Medications Albuterol/Ipratropium (Duoneb) 3 ml INH Q4HR PRN PRN Reason: Wheezing Last Admin: 04/30/18 10:00 Dose: 3 ml Aspirin (Ecotrin) 81 mg PO DAILY [facility] Last Admin: 04/30/18 10:33 Dose: 81 mg Docusate Sodium (Colace 100mg Capsule) 100 mg PO DAILY [facility] Last Admin: 04/30/18 10:19 Dose: 100 mg Enoxaparin Sodium (Lovenox) 40 mg SUBQ DAILY [facility] Last Admin: 04/30/18 10:18 Dose: 40 mg Famotidine (Pepcid) 20 mg PO BID [facility] Last Admin: 04/30/18 10:19 Dose: 20 mg Folic Acid () 1 mg PO DAILY [facility] Last Admin: 04/30/18 11:13 Dose: 1 mg Furosemide (Lasix Inj 20mg Vial) 20 mg IVP BIDDIURETIC [facility] Last Admin: 04/30/18 06:08 Dose: 20 mg Lactulose (Enulose) 10 gm PO BID [facility] Last Admin: 04/30/18 11:13 Dose: 10 gm Lorazepam (Ativan) 2 mg PO Q1HR PRN PRN Reason: CIWA>8 Metoprolol Succinate (Toprol Xl) 12.5 mg PO DAILY [facility] Last Admin: 04/30/18 10:19 Dose: 12.5 mg Multivitamins/Minerals (Theragran M) 1 tab PO DAILYWM [facility] Last Admin: 04/30/18 11:13 Dose: 1 tab Nicotine (Nicoderm) 1 patch TOP DAILY [facility] Last Admin: 04/30/18 10:18 Dose: 1 patch Polyethylene Glycol (Miralax) 17 gm PO DAILY [facility] Last Admin: 04/30/18 10:20 Dose: 17 gm Prochlorperazine Edisylate (Compazine Inj) 10 mg IVP Q6HR PRN PRN Reason: Nausea / Vomiting Last Admin: 04/30/18 10:33 Dose: 10 mg Senna (Senokot) 8.6 - 17.2 mg PO DAILY [facility] Last Admin: 04/30/18 10:19 Dose: 8.6 mg Sodium Chloride (Normal Saline Flush 0.9%) 10 ml IVP PRN PRN PRN Reason: NEEDED PER PROVIDER ORDERS Sodium Chloride (Normal Saline Flush 0.9%) 10 ml IVP 0100,0900,1700 [facility] Last Admin: 04/30/18 10:33 Dose: 10 ml Spironolactone (Aldactone) 25 mg PO DAILY [facility] Last Admin: 04/30/18 10:19 Dose: 25 mg Temazepam (Restoril) 15 mg PO QPM PRN PRN Reason: Insomnia Thiamine HCl (Vitamin B-1) 100 mg PO TID [facility] Objective - Vital Signs/Intake & Output Reviewed Vital Signs: Yes Vital Signs: Vital Signs x48h Temp Pulse Pulse Resp BP Pulse Ox 04/30/18 12:19 36.4 C L 100 18 109/84 H 95 04/30/18 10:00 60 12 04/30/18 07:23 36.4 C L 95 18 112/90 H 97 VSS, afebrile Vital Signs Temp 36.4 C L 04/30/18 12:19 Pulse 100 04/30/18 12:19 Resp 18 04/30/18 12:19 BP 109/84 H 04/30/18 12:19 Pulse Ox 95 04/30/18 12:19 Intake & Output 04/29/18 04/30/18 04/30/18 23:59 11:59 23:59 Intake Total 1440 770 480 Output Total 2720 2200 400 Balance -1280 -1430 80 Intake: Intake, IV Amount 50 Magnesium Sulfate 2 Gram 50 2 gm In 50 ml @ 50 mls/hr IV ONCE [facility] Rx#: [id number] Oral 1440 720 480 Output: Urine 2720 2200 400 Other: % Meal consumed 100% 100% 75% Intake & Output: Intake & Output 04/27/18 04/28/18 04/29/18 04/30/18 23:59 23:59 23:59 23:59 Intake Total 1440 1250 Output Total 3420 2600 Balance -1979 -1350 - Objective General Appearance: positive: No acute distress, Alert Eyes Bilateral: positive: Normal inspection, PERRL, EOMI ENT: positive: No signs of dehydration. negative: Oral lesions Neck: positive: Nml inspection, Thyroid nml, No JVD, Trachea midline. negative: Thyromegaly, Carotid bruit Respiratory: positive: Chest non-tender, No respiratory distress. negative: Wheezes, Rales Cardiovascular: positive: Irregularly irregular, JVD present. negative: No murmur, Gallop/S3, Gallop/S4 Abdomen: positive: Abnml bowel sounds, Other (semi-tense ascites) Back: positive: Nml inspection Skin: positive: Color nml Extremities: positive: Non-tender, Nml appearance, Pedal edema. negative: Joint swelling, Marcela's sign/cords Neurologic/Psychiatric: positive: Oriented x3, CN's nml (2-12) - Lab Results Fish Bones: 04/29/18 09:33 04/30/18 10:38 Other Labs: Lab Results x24hrs 04/30/18 04/30/18 04/30/18 Range/Units 10:38 10:38 05:10 Sodium 137 (135-145) mmol/L Potassium 3.5 (3.5-5.0) mmol/L Chloride 101 (101-111) mmol/L Carbon Dioxide 26 (21-32) mmol/L Anion Gap 10.0 (6-13) BUN 19 (6-20) mg/dL Creatinine 0.9 (0.6-1.2) mg/dL Estimated GFR (MDRD) 88 L (>89) Glucose 92 (70-100) mg/dL Calcium 9.6 (8.5-10.3) mg/dL Phosphorus 3.4 (2.5-4.6) mg/dL Magnesium 1.8 1.8 (1.7-2.8) mg/dL Troponin I (<0.49) ng/mL B-Natriuretic Peptide (5-100) pg/mL Albumin 3.5 (3.2-5.5) g/dL TSH 1.36 (0.34-5.60) uIU/mL Urine RBC (0-5) /HPF Urine WBC (0-3) /HPF Ur Squamous Epith Cells (<= Few) Urine Bacteria (None Seen) /HPF Urine Culture Comments 04/30/18 04/29/18 04/29/18 Range/Units 05:10 22:50 16:30 Sodium (135-145) mmol/L Potassium (3.5-5.0) mmol/L Chloride (101-111) mmol/L Carbon Dioxide (21-32) mmol/L Anion Gap (6-13) BUN (6-20) mg/dL Creatinine (0.6-1.2) mg/dL Estimated GFR (MDRD) (>89) Glucose (70-100) mg/dL Calcium (8.5-10.3) mg/dL Phosphorus (2.5-4.6) mg/dL Magnesium (1.7-2.8) mg/dL Troponin I 0.07 0.07 (<0.49) ng/mL B-Natriuretic Peptide 1195 H (5-100) pg/mL Albumin (3.2-5.5) g/dL TSH (0.34-5.60) uIU/mL Urine RBC (0-5) /HPF Urine WBC (0-3) /HPF Ur Squamous Epith Cells (<= Few) Urine Bacteria (None Seen) /HPF Urine Culture Comments 04/29/18 Range/Units 12:30 Sodium (135-145) mmol/L Potassium (3.5-5.0) mmol/L Chloride (101-111) mmol/L Carbon Dioxide (21-32) mmol/L Anion Gap (6-13) BUN (6-20) mg/dL Creatinine (0.6-1.2) mg/dL Estimated GFR (MDRD) (>89) Glucose (70-100) mg/dL Calcium (8.5-10.3) mg/dL Phosphorus (2.5-4.6) mg/dL Magnesium (1.7-2.8) mg/dL Troponin I (<0.49) ng/mL B-Natriuretic Peptide (5-100) pg/mL Albumin (3.2-5.5) g/dL TSH (0.34-5.60) uIU/mL Urine RBC 0-5 (0-5) /HPF Urine WBC 0-3 (0-3) /HPF Ur Squamous Epith Cells NONE SEEN (<= Few) Urine Bacteria Rare (None Seen) /HPF Urine Culture Comments INDICATED - Diagnostic Imaging Diagnostic Imaging Results: positive: Final report reviewed ABX Reporting Has patient been on IV antibiotics over the past 48 hours?: No Assessment/Plan - Problem List (1) Dilated cardiomyopathy secondary to alcohol Impression: New onset NIDCM seen on ECHO with estimated EF 20% likely ETOH induced with perhaps underlying B1 def, pending level, would continue with guideline directed medical therapy with metoprolol succinate, HOLD ANTONI-inh due to patient being on aldactone and lasix. Med mgmt with PO thiamine, MVI, FA. 3 sets of trops 0.07. TSH WNL. Check Lipid panel and treat with statin if LFT's ok. (2) Atrial fibrillation with RVR Impression: Likely as a result of NIDCM, etoh induced cardiotoxicity, with perhaps underlying thiamine def. Improved on metoprolol and would titrate if BP tolerates. TSH levels normal, Mg levels to be above 2 in the setting of etoh abuse, and new onset afib, already on lasix and aldactone which may offset K levels which need to be >4.0. Currently, not a candidate for a NOAC or AC due to a CHADS VAsc of 1. (3) Ascites due to alcoholic hepatitis Impression: Secondary to decreased oncotic pressure and anasarca seen clinically. Appears to be w/o SBP, semi-tense and possible 1L of fluid. May get a paracentesis outpatient to [facility], but will watch closely, is diuresing well on lasix/aldactone. (4) Hypomagnesemia Impression: Give 2g magsulfate, will start on magoxide 800 mg po tid to maintain mg>2.o as this has been depleted by ETOh abuse and IV diuretics and aldactone. (5) Leg cramping Impression: Secondary to diuretics. Replace mag and K levels especially in the setting of new onset afib. (6) Cholelithiases Impression: US abdomen shows a CBD dilation of 10mm, normal LFT's and lipase but with Tbili 1.8, likely GB thickening with some edema sec to ascites. Mild right hydronephrosis seen as well. Will likely need eval as outpatient for elective lap cholecystectomy. Qualifiers: Cholelithiasis location: gallbladder Cholecystitis presence: without cholecystitis Biliary obstruction: without biliary obstruction Qualified Code(s): K80.20 - Calculus of gallbladder without cholecystitis without obstruction (7) Chronic alcohol abuse Impression: Patient to be on a CIWa protocol with po ativan, thiamine, MVI anf FA. Alternatively, may use neurontin for anxiety and agitation related to etoh withdrawals.
[2018-04-30] MEDS: THIAMINE 100 MG TABLET PO SCH ×2 (13:50→21:41)
[2018-04-30] MEDS: SODIUM CHLORIDE FLUSH 0.9% 10 ML SYRINGE IVP PRN (13:50)
[2018-04-30] MEDS: MAGNESIUM OXIDE 400 MG TABLET PO SCH (21:41)
--- NOTE | 2018-05-01 01:14 | Discharge Plan ---
Discharge Plan Diet: Low Sodium Activity Restrictions: Activity as Tolerated Shower Restrictions: No Driving Restrictions: No No Smoking: If you smoke, Please STOP! Call for help. Disposition: 01 Home, Self Care Condition: Fair Prescriptions: Aspirin [Adult Aspirin] 81 mg PO DAILY #30 tablet. Folic Acid 1 mg PO DAILY #100 tablet Furosemide [Lasix] 20 mg PO BID #60 tablet Lactulose 10 gm PO BID #900 bottle Magnesium Oxide [Mag Ox] 800 mg PO BID #60 tablet Metoprolol Succinate [Toprol Xl] 12.5 mg PO DAILY #15 tablet Spironolactone 25 mg PO BID #60 tablet Thiamine [Vitamin B-1] 100 mg PO TID #100 tablet Instruction Topics: Metoprolol tablets, Furosemide tablets, Heart Failure Meds Control, Heart Failure, Heart Failure Warning Signs, Heart Failure Tracking Weight, Heart Failure Diet Changes, Atrial Fibrillation Additional Instructions or Follow Up instructions: You were admitted to the hospital because of shortness of breath when you tried to do anything and was worse when you tried to lay down flat. You had already been admitted to the hospital 2 weeks ago for abdominal pain and you were found to have alcoholic liver disease, alcoholic hepatitis, and were told to stop drinking alcohol. After evaluating you this second time, we found you to be in congestive heart failure. Congestive heart failure means that the heart muscle on the left side of your heart is not pumping, and has become weaker. Your alcohol abuse has resulted in a nonischemic cardiomyopathy, which is the congestive heart failure, and the pump mechanism of your heart is down to 20-25% . Usual pump ejection fraction is 55-60%. Because you have a new diagnosis of congestive heart failure you have been told to increase your Aldactone to twice a day. You have been started on Toprol-XL, 25 mg tablet but only take 1/2 tablet a day. And to help get rid of toxins from your liver and help you with constipation, you have been started on lactulose 10 g by mouth twice a day. Sometimes alcohol abuse will result in severe vitamin deficiency and your bone marrow cannot work correctly to make blood. We have started you on folic acid, thiamine, and a multivitamin. Make sure you take these vitamins every day. While here, you also developed severe leg cramps. That is most likely from a magnesium deficiency and your leg cramps responded to intravenous magnesium. We are sending you home on magnesium. Please see your primary care provider, Dr. Butcher, in the next 1-2 weeks. We are asking you to please do not drink. Do not smoke. Take your medications on a regular basis. Dr. Butcher will need to check your blood work in the next 1-2 weeks. He will also assess if the lactulose is helping you or not. Follow-up with: Irvin Butcher MD [Credentialed Staff Provider] - 2 Weeks (PCP follow up in 1-2 weeks with [facility] )
[2018-05-01] MEDS: SODIUM CHLORIDE FLUSH 0.9% 10 ML SYRINGE IVP SCH ×2 (01:55→09:17)
[2018-05-01 05:49] LABS: CALCIUM 9.6 mg/dL (8.5-10.3); CREATININE 0.7 mg/dL (0.6-1.2); MAGNESIUM 1.9 mg/dL (1.7-2.8)
[2018-05-01 05:56] LABS: CHOL/HDL RATIO 3.6 (<5.0); CHOLESTEROL 93 mg/dL; HDL CHOLESTEROL 26 mg/dL; LDL CHOLESTEROL,CALCULATED 53 mg/dL; VLDL CHOLESTEROL 14 mg/dL
[2018-05-01 06:00] LABS: INR 1.4 (0.8-1.2); PT - PROTHROMBIN TIME 15.5 secs (9.9-12.6)
[2018-05-01] MEDS: THIAMINE 100 MG TABLET PO SCH (06:07)
[2018-05-01] MEDS: SODIUM CHLORIDE FLUSH 0.9% 10 ML SYRINGE IVP PRN (06:09)
[2018-05-01] MEDS: FUROSEMIDE 20 MG/2 ML VIAL IVP SCH (06:14)
[2018-05-01 08:35] VITALS: BP 122/81
[2018-05-01] MEDS: FOLIC ACID 1 MG TABLET PO SCH (09:10)
[2018-05-01] MEDS: DOCUSATE SODIUM 100 MG CAPSULE PO SCH (09:10)
[2018-05-01] MEDS: SPIRONOLACTONE 25 MG TABLET PO SCH (09:10)
[2018-05-01] MEDS: MAGNESIUM OXIDE 400 MG TABLET PO SCH (09:10)
[2018-05-01] MEDS: MULTIVITAMIN W/MINERALS TABLET PO SCH (09:11)
[2018-05-01] MEDS: METOPROLOL SUCCINATE 25 MG TABLET PO SCH (09:11)
[2018-05-01] MEDS: ASPIRIN EC 81 MG TABLET PO SCH (09:12)
[2018-05-01] MEDS: SENNA 8.6 MG TABLET PO SCH (09:12)
[2018-05-01] MEDS: FAMOTIDINE 20 MG TABLET PO SCH (09:12)
[2018-05-01] MEDS: ENOXAPARIN 40 MG/0.4 ML SYRINGE SUBQ SCH (09:14)
[2018-05-01] MEDS: LACTULOSE 10 GM /15 ML UDC PO SCH (09:15)
[2018-05-01] MEDS: NICOTINE 14 MG PATCH TOP SCH (09:16)
[2018-05-01] MEDS: POLYETHYLENE GLYCOL 3350 17 GM PACKET PO SCH (09:17)
--- NOTE | 2018-05-04 17:45 | DISCHARGE SUMMARY ---
"Discharge Summary Admit Date: 04/30/18 Discharge Date: 05/01/18 Discharging Provider: Dr Villasenor Primary Care Provider: Unknown Code Status: Attempt Resuscitation Condition at Discharge: Stable Discharge Disposition: 01 Home, Self Care - DIAGNOSES Admission Diagnoses: Acute exacerbation of suspected systolic HF secondary to ETOH abuse New onset atrial fibillation Ascites Alcohol abuse Tobacco use Abnormal ecg Discharge Diagnoses with Status of Each Condition: (1) Dilated cardiomyopathy secondary to alcohol (2) Atrial fibrillation with RVR (3) Ascites due to alcoholic hepatitis (4) Hypomagnesemia (5) Leg cramping (6) Cholelithiases (7) Chronic alcohol abuse - HPI History of Present Illness: Previously well 53-year-old male was seen in the emergency department 10 days ago with abdominal pain and abdominal swelling he was noted to have some ascites and was placed on some diuretic. Since that time he has had persistence of abdominal distention some constipation and a feeling of fullness and shortness of breath. He states that he is not able to lay flat without being short of breath and it if he exerts himself at all he becomes acutely short of breath. He does state that he is previously had hypertension he was treated for some time and discontinued treatment about 1 year ago when his blood pressure was normal after he ran out of his medication. - CONSULTS | PROCEDURES Procedures: ECHO - HOSPITAL COURSE Hospital Course: Patient was admitted for abdominal pain and non-tense ascites with increased swelling to BLLE and clinical anasarca, markedly elevated BNP, orthopnea and PND, CXR showed right pleural effusion similar to ten days ago, and cardiomegaly. Patient found to have New onset NIDCM seen on ECHO with estimated EF 20% likely ETOH induced with perhaps underlying B1 def, pending level, would continue with guideline directed medical therapy with metoprolol succinate, HOLD ANTONI-inh due to patient being on aldactone and lasix. Med mgmt with PO thiamine, MVI, FA. 3 sets of trops 0.07. TSH WNL. Lipids were ok. Due to BEBO seen patient had gone into RVR afib Likely as a result of NIDCM, etoh induced cardiotoxicity, with perhaps underlying thiamine def. Improved on metoprolol and would titrate if BP tolerates. TSH levels normal, Mg levels to be above 2 in the setting of etoh abuse, and new onset afib, already on lasix and aldactone which may offset K levels which need to be >4.0. Currently, not a candidate for a NOAC or AC due to a CHADS VAsc of 1. Ascites was associated with his hepatitis. Secondary to decreased oncotic pressure and anasarca seen clinically. Appears to be w/o SBP, semi-tense and possible 1L of fluid. May get a paracentesis outpatient to eval [facility], but will watch closely, is diuresing well on lasix/aldactone. Electrolyte disturbances were treated with hypomagnesemia, Given 2g magsulfate, was continued on magoxide 800 mg po tid to maintain mg>2.o as this has been depleted by ETOh abuse and IV diuretics and aldactone. Leg cramping was a complication of diuretic use which was corrected with Replacement of mag and K levels especially in the setting of new onset afib. Patient had evidence of cholelithiasis seen on US abdomen showing a CBD dilation of 10mm, normal LFT's and lipase but with Tbili 1.8, likely GB thickening with some edema sec to ascites. Mild right hydronephrosis seen as well. Did not require eval for lap/marleen and would need outpatient follow up. Patient was placed on CIWA protocol with po ativan, thiamine, MVI anf FA. Alternatively, may use neurontin for anxiety and agitation related to etoh withdrawals. - ALLERGIES Allergies/Adverse Reactions: Allergies Allergy/AdvReac Type Severity Reaction Status Date / Time No Known Drug Allergies Allergy Verified 04/29/18 13:21 - MEDICATIONS Home Medications: Ambulatory Orders Medication Instructions Recorded Confirmed RX: Docusate Sodium 100 mg PO DAILY #20 capsule 04/18/18 04/29/18 RX: Naproxen 375 mg PO BID #20 tablet 04/18/18 04/29/18 Furosemide [Lasix] 20 mg PO BID #60 tablet 05/01/18 RX: Aspirin [Adult Aspirin] 81 mg PO DAILY #30 tablet. 05/01/18 RX: Folic Acid 1 mg PO DAILY #100 tablet 05/01/18 RX: Lactulose 10 gm PO BID #900 bottle 05/01/18 RX: Magnesium Oxide [Mag Ox] 800 mg PO BID #60 tablet 05/01/18 RX: Metoprolol Succinate [Toprol 12.5 mg PO DAILY #15 tablet 05/01/18 Xl] RX: Multivitamin W/Minerals 1 tab PO DAILYWM tablet 05/01/18 [Theragran M] RX: Spironolactone 25 mg PO BID #60 tablet 05/01/18 RX: Thiamine [Vitamin B-1] 100 mg PO TID #100 tablet 05/01/18 - PHYSICAL EXAM AT DISCHARGE General Appearance: positive: No acute distress, Alert Eyes Bilateral: positive: Normal inspection, PERRL, EOMI ENT: positive: Pharynx nml Neck: positive: Nml inspection, Thyroid nml. negative: Thyromegaly, Carotid bruit Respiratory: positive: Chest non-tender, No respiratory distress, Breath sounds nml Cardiovascular: positive: Regular rate & rhythm, No murmur, No gallop, Irre gularly irregular, JVD present. negative: Friction rub Peripheral Pulses: positive: 2+ Abdomen: positive: Non-tender, Nml bowel sounds, Other (ascites ) Skin: positive: Color nml, No rash, Warm Extremities: positive: Non-tender, Full ROM, Nml appearance, Pedal edema. negative: Marcela's sign/cords Neurologic/Psychiatric: positive: Oriented x3, CN's nml (2-12) - LABS Result Diagrams: 04/29/18 09:33 05/01/18 05:10 - FOLLOW UP Follow Up: PCP in 1-2 weeks. - TIME SPENT Time Spent in Discharge (Minutes): 35"
== END 2018-05-01 12:53 | disposition home or self-care (01) | DRG 314 ==
LOC: ED 09:09 → MS2 16:05
PROVIDERS: ADMIT Internal Medicine; ATTEND Family Medicine
DX: I42.6 Alcoholic cardiomyopathy (principal); I50.23 Acute on chronic systolic (congestive) heart failure; E51.9 Thiamine deficiency, unspecified; F10.20 Alcohol dependence, uncomplicated; K70.11 Alcoholic hepatitis with ascites; I48.91 Unspecified atrial fibrillation; E83.42 Hypomagnesemia; R25.2 Cramp and spasm; K80.20 Calculus of gallbladder without cholecystitis without obstruction; T50.1X5A Adverse effect of loop [high-ceiling] diuretics, initial encounter; T50.0X5A Adverse effect of mineralocorticoids and their antagonists, initial encounter; F17.210 Nicotine dependence, cigarettes, uncomplicated; M19.90 Unspecified osteoarthritis, unspecified site; Z82.49 Family history of ischemic heart disease and other diseases of the circulatory system
CPT/HCPCS: 36415; 71045; 76705; 80048; 80053; 80061; 80069; 81001; 81003; 83690; 83721; 83735; 83880; 84425; 84443; 84484; 85025; 85610; 87086; 93005; 93306; 94640; 96374; 96375; 99284

== ENCOUNTER 2018-05-16 17:29 | Emergency (ER) | payer MEDICAID ==
--- NOTE | 2018-05-16 17:59 | ED Physician Documentation ---
PD HPI ABD PAIN - Stated complaint Stated Complaint: ABD PX - Chief complaint Chief Complaint: Abd Pain - History obtained from History obtained from: Patient - History of Present Illness Timing - onset: Yesterday (This is a 53-year-old gentleman with recent admission for new onset A. fib, ascites due to alcohol abuse. Since yesterday he has had diffuse abdominal pain with decreased bowel movements, very small bowel movements. There is no nausea but he was briefly sweaty. The bloating, pedal edema are much better since his last admission he is quit drinking.) Review of Systems Constitutional: denies: Fever, Chills Cardiac: denies: Chest pain / pressure, Palpitations Respiratory: denies: Dyspnea, Cough GI: reports: Abdominal Pain, Constipation. denies: Nausea, Vomiting, Diarrhea, Hematemesis PD PAST MEDICAL HISTORY - Past Medical History Cardiovascular: Hypertension Respiratory: None Neuro: None Endocrine/Autoimmune: None GI: None : None HEENT: None Psych: None Musculoskeletal: Osteoarthritis, Other Derm: None - Past Surgical History Past Surgical History: Yes Ortho: Rotator cuff repair, Carpal Tunnel surgery, Other - Present Medications Home Medications: Ambulatory Orders Medication Instructions Recorded Confirmed Docusate Sodium 100 mg PO DAILY #20 capsule 04/18/18 05/16/18 Naproxen 375 mg PO BID #20 tablet 04/18/18 04/29/18 Aspirin [Adult Aspirin] 81 mg PO DAILY #30 tablet. 05/01/18 05/16/18 Folic Acid 1 mg PO DAILY #100 tablet 05/01/18 05/16/18 Furosemide [Lasix] 20 mg PO BID #60 tablet 05/01/18 05/16/18 Lactulose 10 gm PO BID #900 bottle 05/01/18 05/16/18 Magnesium Oxide [Mag Ox] 800 mg PO BID #60 tablet 05/01/18 05/16/18 Metoprolol Succinate [Toprol Xl] 12.5 mg PO DAILY #15 tablet 05/01/18 05/16/18 Multivitamin W/Minerals [Theragran 1 tab PO DAILYWM tablet 05/01/18 05/16/18 M] Spironolactone 25 mg PO BID #60 tablet 05/01/18 05/16/18 Thiamine [Vitamin B-1] 100 mg PO TID #100 tablet 02/06/19 02/21/19 Hydrocodone/Acetaminophen 1 - 2 each PO Q6H PRN #14 tablet 05/16/18 [Hydrocodon-Acetaminophen 5-325] Rivaroxaban [Xarelto] 15 mg PO BID #21 tablet 05/16/18 Rivaroxaban [Xarelto] 20 mg PO DAILY #30 tablet 05/16/18 - Allergies Allergies/Adverse Reactions: Allergies Allergy/AdvReac Type Severity Reaction Status Date / Time No Known Drug Allergies Allergy Verified 05/16/18 17:36 - Social History Does the pt smoke?: Yes Smoking Status: Current every day smoker Does the pt drink ETOH?: Yes Does the pt have substance abuse?: No - Immunizations Immunizations are current?: No Immunizations: TDAP >10years/unknown - POLST Patient has POLST: No PD ED PE NORMAL - Vitals Vital signs reviewed: Yes - General General: Alert and oriented X 3, No acute distress - HEENT HEENT: PERRL, EOMI - Neck Neck: Supple, no meningeal sign, No bony TTP - Cardiac Cardiac: Other (Slightly rapid and irregular) - Respiratory Respiratory: No respiratory distress, Clear bilaterally - Abdomen Abdomen: Normal bowel sounds, Soft, Other (Mild upper and left abdominal tenderness without surgical signs) - Derm Derm: Normal color, Warm and dry, No rash - Extremities Extremities: No edema, No calf tenderness / cord - Neuro Neuro: Alert and oriented X 3, Normal speech Results - Vitals Vitals: Vital Signs - 24 hr 05/16/18 05/16/18 17:34 19:04 Temperature 35.7 C L 36.3 C L Heart Rate 95 98 Respiratory 20 18 Rate Blood Pressure 110/81 H 122/79 O2 Saturation 99 97 Oxygen O2 Source Room air - EKG (time done) 1810 Rate: Rate (enter#) (96) Rhythm: Atrial fibrillation QRS: LVH Ischemia: Q waves (anterior). No: ST elevation c/w ischemia Computer interpretation: Agree with computer - Labs Labs: Laboratory Tests 05/16/18 05/16/18 05/16/18 18:10 18:10 18:10 WBC 8.7 RBC 5.28 Hgb 17.1 Hct 51.8 MCV 98.2 H MCH 32.4 H MCHC 33.0 RDW 14.2 Plt Count 303 MPV 8.5 Neut # (Auto) 6.2 Lymph # (Auto) 1.8 [place] # (Auto) 0.5 Eos # (Auto) 0.0 Baso # (Auto) 0.1 Absolute Nucleated RBC 0.00 Nucleated RBC % 0.1 Manual Slide Review Indicated Platelet Estimate NORMAL (130-450,000) Platelet Morphology 1+ GIANT PLATELETS RBC Morph Micro Appear NORMAL APPEARANCE PT 12.0 INR 1.1 Sodium 134 L Potassium 4.8 Chloride 99 L Carbon Dioxide 27 Anion Gap 8.0 BUN 18 Creatinine 0.7 Estimated GFR (MDRD) 118 Glucose 126 H Calcium 11.0 H Total Bilirubin 1.0 AST 31 ALT 35 Alkaline Phosphatase 114 Total Protein 8.6 H Albumin 4.6 Globulin 4.0 Albumin/Globulin Ratio 1.1 Lipase 32 - Rads (name of study) CT A/P Radiology: EMP read contemporaneously (Diverticulosis, splenic infarct.) PD MEDICAL DECISION MAKING - ED course ED course: 53-year-old gentleman with left-sided abdominal pain in the setting of recent new diagnosis of atrial fibrillation. He is not anticoagulated, but I do not think his CHADS VASC would necessitate this, however he will is found to have a splenic infarct, so he does need anticoagulation now. Departure - Departure Disposition: 01 Home, Self Care Clinical Impression: Splenic infarct Atrial fibrillation Qualifiers: Atrial fibrillation type: chronic Qualified Code(s): I48.2 - Chronic atrial fibrillation Condition: Stable Record reviewed to determine appropriate education?: Yes Instructions: Atrial Fibrillation Dc Prescriptions: Hydrocodone/Acetaminophen [Hydrocodon-Acetaminophen 5-325] 1 - 2 each PO Q6H PRN #14 tablet PRN Reason: pain Rivaroxaban [Xarelto] 15 mg PO BID #21 tablet Rivaroxaban [Xarelto] 20 mg PO DAILY #30 tablet Comments: Do not take naproxen anymore. The blood thinner, start it at 15 mg twice a day for the first 3 weeks, after that it is the higher dose, 20 mg, but only once a day. Follow-up with your doctor early next week. Return for new or worsening symptoms.
[2018-05-16 18:28] LABS: BASOPHILS # (AUTO) 0.1 10^3/uL (0.0-0.1); BASOPHILS % (AUTO) 1.5 %; EOSINOPHILS % (AUTO) 0.4 %; HGB - HEMOGLOBIN 17.1 g/dL (14.0-18.0); LYMPHOCYTES # (AUTO) 1.8 10^3/uL (1.5-3.5); LYMPHOCYTES % (AUTO) 20.7 %; MEAN CORPUSCULAR HEMOGLOBIN 32.4 pg (27.0-31.0); MEAN CORPUSCULAR VOLUME 98.2 fL (80.0-94.0); MEAN PLATELET VOLUME 8.5 fL (7.4-11.4); MONOCYTES # (AUTO) 0.5 10^3/uL (0.0-1.0); MONOCYTES % (AUTO) 6.1 %; NEUTROPHILS # (AUTO) 6.2 10^3/uL (1.5-6.6); NEUTROPHILS % (AUTO) 71.3 %; PLT - PLATELET COUNT 303 10^3/uL (130-450); RED BLOOD COUNT 5.28 10^6/uL (4.70-6.10); RED CELL DISTRIBUTION WIDTH 14.2 % (12.0-15.0); WHITE BLOOD COUNT 8.7 x10^3/uL (4.8-10.8)
[2018-05-16 18:31] LABS: INR 1.1 (0.8-1.2)
[2018-05-16] MEDS ORDERED: KETOROLAC 30 MG/ML VIAL IVP STA (18:32)
[2018-05-16 18:34] LABS: ALBUMIN 4.6 g/dL (3.2-5.5); ALBUMIN/GLOBULIN RATIO 1.1 (1.0-2.2); CREATININE 0.7 mg/dL (0.6-1.2); TOTAL PROTEIN 8.6 g/dL (6.7-8.2)
[2018-05-16] MEDS ORDERED: IOVERSOL 320 100 ML VIAL IVP ONE ×2 (18:49→19:38)
[2018-05-16 18:56] LABS: PLATELET ESTIMATE, MANUAL NORMAL (130-450,000) (NORMAL); PLATELET MORPHOLOGY 1+ GIANT PLATELETS (NORMAL); RBC MORPHOLOGY (MULTIPLE) NORMAL APPEARANCE (NORMAL)
--- NOTE | 2018-05-16 19:49 | CT Report ---
Reason: IV only, L abd pain Procedure Date: 05/16/2018 Accession Number: [id number] / [id number] Procedure: CT - Abdomen/Pelvis W CPT Code: FULL RESULT: EXAM: CT ABDOMEN AND PELVIS EXAM DATE: 05/16/2018 07:17 PM. CLINICAL HISTORY: Abdominal pain COMPARISONS: ABDOMEN/PELVIS W/ 04/18/2018 2:26 PM. TECHNIQUE: Routine helical CT imaging was performed through the abdomen and pelvis. IV contrast: OPTI 320 100mL. Enteric contrast: No. Reconstructions: Coronal and sagittal. In accordance with CT protocol optimization, one or more of the following dose reduction techniques were utilized for this exam: automated exposure control, adjustment of mA and/or KV based on patient size, or use of iterative reconstructive technique. FINDINGS: Lung Bases: Unremarkable. Liver: Normal. No masses. Gallbladder/Bile Ducts: There is cholelithiasis. No evidence of cholecystitis. Spleen: There is geographic hypodensity within the upper aspect of the spleen (for example image 37 series 5). Pancreas: Normal. Adrenal Glands: Normal. Kidneys: Renal cortical irregularity may represent scarring. No acute renal abnormalities are seen. Peritoneal Cavity/Bowel: There is distal colon diverticulosis without definite CT evidence of diverticulitis. Stomach and small bowel demonstrate no acute abnormalities. There are no enlarged mesenteric or retroperitoneal lymph nodes. No intraperitoneal free air or free fluid. The appendix is well visualized and normal. Pelvic Organs: Normal. The bladder and visualized pelvic organs are within normal limits. Vasculature: No aneurysms or other significant abnormality. Bones: No acute bony abnormalities. Other: None. IMPRESSION: 1. There is geographic hypodensity measuring approximately 3 cm in diameter within the upper aspect of the spleen. This could represent a small splenic infarct. Differential consideration would be variable enhancement of the spleen secondary to timing of contrast bolus. 2. There is distal colon diverticulosis without CT evidence of diverticulitis. 3. No evidence of appendicitis or bowel obstruction. 4. There is cholelithiasis. No evidence of cholecystitis. RADIA
[2018-05-16] MEDS ORDERED: RIVAROXABAN 15 MG TABLET PO STA (20:05)
[2018-05-16] MEDS ORDERED: HYDROcod/ACET 5/325 Prepack 4 PO STA (20:06)
[2018-05-16 20:14] VITALS: BP 108/68
== END 2018-05-16 20:36 | disposition home or self-care (01) ==
LOC: ED 17:29
DX: D73.5 Infarction of spleen (principal); I48.2 Chronic atrial fibrillation; I10 Essential (primary) hypertension; F17.200 Nicotine dependence, unspecified, uncomplicated
CPT/HCPCS: 36415; 74177; 80053; 83690; 85025; 85610; 93005; 96374; 99283; A9270; Q9967

== ENCOUNTER 2018-06-03 12:05 | Emergency (ER) | payer MEDICAID ==
[2018-06-03 12:11] VITALS: BP 133/79
--- NOTE | 2018-06-03 12:27 | ED Physician Documentation ---
History of Present Illness - Stated complaint Stated Complaint: BILAT EYE SWELLING - Chief complaint Chief Complaint: Heent - History obtained from History obtained from: Patient - History of Present Illness Timing: How many weeks ago (1) Pain level max: 0 Pain level now: 0 - Additonal information Additional information: 53-year-old male presents to the emergency department complaining of bilateral upper and lower eyelid redness and scaling for the past couple of weeks. Saw his PCP and was placed on Medications, but states he is not improving. Does not know the medications that he was placed on. Did not bring them with him. Nothing makes it better or worse. Does not wear contacts Review of Systems Constitutional: denies: Fever, Chills : denies: Dysuria Skin: denies: Rash PD PAST MEDICAL HISTORY - Past Medical History Cardiovascular: Hypertension Respiratory: None Neuro: None Endocrine/Autoimmune: None GI: None : None HEENT: None Psych: None Musculoskeletal: Osteoarthritis, Other Derm: None - Past Surgical History Past Surgical History: Yes Ortho: Rotator cuff repair, Carpal Tunnel surgery, Other - Present Medications Home Medications: Ambulatory Orders Medication Instructions Recorded Confirmed Docusate Sodium 100 mg PO DAILY #20 capsule 04/18/18 05/16/18 Naproxen 375 mg PO BID #20 tablet 04/18/18 04/29/18 Aspirin [Adult Aspirin] 81 mg PO DAILY #30 tablet. 05/01/18 05/16/18 Folic Acid 1 mg PO DAILY #100 tablet 05/01/18 05/16/18 Furosemide [Lasix] 20 mg PO BID #60 tablet 05/01/18 05/16/18 Lactulose 10 gm PO BID #900 bottle 05/01/18 05/16/18 Magnesium Oxide [Mag Ox] 800 mg PO BID #60 tablet 05/01/18 05/16/18 Metoprolol Succinate [Toprol Xl] 12.5 mg PO DAILY #15 tablet 05/01/18 05/16/18 Multivitamin W/Minerals [Theragran 1 tab PO DAILYWM tablet 05/01/18 05/16/18 M] Spironolactone 25 mg PO BID #60 tablet 05/01/18 05/16/18 Thiamine [Vitamin B-1] 100 mg PO TID #100 tablet 05/01/18 05/16/18 Hydrocodone/Acetaminophen 1 - 2 each PO Q6H PRN #14 tablet 05/16/18 [Hydrocodon-Acetaminophen 5-325] Rivaroxaban [Xarelto] 15 mg PO BID #21 tablet 05/16/18 Rivaroxaban [Xarelto] 20 mg PO DAILY #30 tablet 05/16/18 Erythromycin Base [Erythromycin 1 applic EACHEYE Q8H 7 Days #1 06/03/18 Ophthalmic Ointment] oint...g. Ketotifen Fumarate 5 ml OP 06/03/18 06/03/18 predniSONE [Deltasone] 10 mg PO [id number] #42 tab 06/03/18 - Allergies Allergies/Adverse Reactions: Allergies Allergy/AdvReac Type Severity Reaction Status Date / Time No Known Drug Allergies Allergy Verified 06/03/18 12:11 - Social History Does the pt smoke?: Yes Smoking Status: Current every day smoker Does the pt drink ETOH?: Yes Does the pt have substance abuse?: No - Immunizations Immunizations are current?: No Immunizations: TDAP >10years/unknown - POLST Patient has POLST: No PD ED PE NORMAL - Vitals Vital signs reviewed: Yes - General General: Alert and oriented X 3, No acute distress - HEENT HEENT: PERRL, EOMI, Moist mucous membranes, Other (Mild erythema to the B eyelids with some scaling. normal conjunctiva B. ) - Derm Derm: Warm and dry - Neuro Neuro: Alert and oriented X 3 Results - Vitals Vitals: Vital Signs - 24 hr 06/03/18 12:09 Temperature 35.7 C L Heart Rate 97 Respiratory 20 Rate Blood Pressure 133/79 H O2 Saturation 95 Oxygen O2 Source Room air PD MEDICAL DECISION MAKING - ED course Complexity details: considered differential, d/w patient ED course: 53-year-old male with bilateral blepharitis. He does have a little bit of a rash extending on steroids. Also trial on erythromycin ointment. Patient counseled regarding signs and symptoms for which I believe and urgent re- evaluation would be necessary. Patient with good understanding of and agreement to plan and is comfortable going home at this time This document was made in part using voice recognition software. While efforts are made to proofread this document, sound alike and grammatical errors may occur. Departure - Departure Disposition: 01 Home, Self Care Clinical Impression: Blepharitis of both eyes Qualifiers: Blepharitis type: unspecified type Eyelid: both upper and lower Qualified Code(s): H01.00A - Unspecified blepharitis right eye, upper and lower eyelids Condition: Good Instructions: ED Inflammation Eyelid Follow-Up: Shannen Gomez ARNP [Primary Care Provider] - Within 1 week Prescriptions: Erythromycin Base [Erythromycin Ophthalmic Ointment] 1 applic EACHEYE Q8H 7 Days #1 oint...g. predniSONE [Deltasone] 10 mg PO [id number] #42 tab Comments: Use the medications as prescribed. Return if you worsen. Follow-up with your doctor for further care.
== END 2018-06-03 12:55 | disposition home or self-care (01) ==
LOC: ED 12:05
DX: H01.00A Unspecified blepharitis right eye, upper and lower eyelids (principal); I10 Essential (primary) hypertension; F17.200 Nicotine dependence, unspecified, uncomplicated
CPT/HCPCS: 99283